=== PATIENT | male | born 2005 | race Caucasian/White ===

== ENCOUNTER 2025-01-28 12:32 | Inpatient (IN) | payer OTHER, SELFPAY ==
--- NOTE | 2025-01-28 12:51 | ED.GENADULT ---
HPI - General Adult General Chief complaint: Psychiatric Symptoms Stated complaint: SEC 12 SI/HI STATEMENTS 2 SCHOOL Time Seen by Provider: 01/28/25 12:37 Source: patient and EMS Mode of arrival: EMS Limitations: no limitations History of Present Illness ED Provider: Tasha Lala PA-C HPI narrative: Patient is a 19 year old assigned male at with a history of autism, ADHD, and anxiety presenting to the emergency department today with suicidal and homicidal ideation. Patient states that he attempted to overdose last night by taking 1 extra dose of his medication and he continues to feel suicidal and homicidal towards his mother. Patient denies any other complaints at this time. Related Data Home Medications ?Medication ?Instructions ?Recorded ?Confirmed oxcarbazepine 300 mg tablet 300 mg PO QAM 01/28/25 01/28/25 oxcarbazepine 600 mg tablet 600 mg PO QPM 01/28/25 01/28/25 risperidone 0.5 mg tablet 0.5 mg PO DAILY 01/28/25 01/28/25 risperidone 1 mg tablet 1.5 mg PO BEDTIME 01/28/25 01/28/25 trazodone 100 mg tablet 100 mg PO BEDTIME 01/28/25 01/28/25 Allergies Allergy/AdvReac Type Severity Reaction Status Date / Time No Known Allergies Allergy Verified 01/28/25 13:03 Review of Systems Constitutional: Constitutional: Reports as per HPI Eyes: Eyes: Reports as per HPI ENT: Reports as per HPI Cardiovascular: Cardiovascular: Reports as per HPI Respiratory: Respiratory: Reports as per HPI Gastrointestinal: Gastrointestinal: Reports as per HPI Genitourinary: Genitourinary: Reports as per HPI Musculoskeletal: Musculoskeletal: Reports as per HPI Integumentary/Breasts: Skin/Breast: Reports as per HPI Neurologic: Reports as per HPI Psychiatric: Psychiatric: Reports as per HPI Endocrine: Endocrine: Reports as per HPI Hematologic/Lymphatic: Hematologic/Lymphatic: Reports as per HPI Allergic/Immunologic: Allergic/Immunologic: Reports as per HPI PMF Past Medical History Attestation statement: The following information was validated with the patient. Source: old records reviewed and nursing notes reviewed Social History Social History Smoked in Last 30 Days: No Advance Directives: No Advance Directives Information Provided: Yes Do you have a plan to hurt others: No Plan Physical Exam ED Vital Signs: Vital Signs - 24 hr 01/29/25 06:00 Temperature 97.6 F Pulse Rate 83 Respiratory Rate 18 Blood Pressure 115/77 Pulse Oximetry 99 Oxygen Delivery Method Room Air BMI result Body Mass Index 31.0 Const General: cooperative, no acute distress, alert and awake Nutritional Appearance: well nourished Orientation/consciousness: patient oriented x3 HENMT Head: Yes normal to inspection and Yes atraumatic Ears: hearing grossly normal bilaterally and external ears normal General nose exam: Normal external nose present, no nasal discharge noted and no epistaxis Face and sinus: Yes normal facial exam, No abrasion and No laceration Mouth: Normal oral and palatal mucosa present, no drooling and no muffled voice Eyes General: appearance normal, both eyes and all related structures Periorbital: periorbital findings normal Eyelids: Yes eyelids normal Conjunctivae: conjunctivae normal Pupils: Equal, round and reactive pupils present EOM: EOMs intact bilaterally Neck Neck: Yes normal visual inspection and Yes full ROM Resp Effort & Inspection: normal respiratory effort and able to speak in complete sentences Neuro General: patient oriented x3, moves all extremities and CN's II-XI intact bilaterally Cranial nerves: Yes Equal, round and reactive pupils present Cognition (Neuro): normal cognition Extrem General: Yes normal to inspection, Yes full ROM and Yes capillary refill normal Psych Appearance: grossly normal Mental Status: mental status grossly normal Thought content: Suicidality present and Homicidality present Course Course Course Narrative: Time: 06:31 Date: 01/29/25 Provider: Vanessa Moreno DO Patient in physician observation for psychiatric evaluation.? No acute events reported overnight. No current complaints. VS stable.?pending psych placement. Will continue to monitor. Reevaluation(s) Reevaluation #1: Time: 14:16 Date: 01/29/25 Provider: Vanessa Moreno DO Physician observation ended at 14:16 Patient to be admitted as inpatient to psychiatry Reevaluation #2: Time: 15:04 Date: 01/29/25 Provider: Vanessa Moreno DO Physician observation ended at 15:04 Patient to be admitted as inpatient to psychiatry. Medications Administered Generic Name Dose Route Start Last Admin Trade Name Freq PRN Reason Stop Dose Admin Oxcarbazepine 300 mg 01/29/25 07:30 01/29/25 08:26 Oxcarbazepine 300 Mg Tablet PO Not Given DAILY YVONNE Risperidone 0.5 mg 01/29/25 09:00 01/29/25 07:50 Risperidone 0.5 Mg Tablet PO 0.5 mg DAILY YVONNE Administration Discontinued Medications Generic Name Dose Route Start Last Admin Trade Name Scooter PRN Reason Stop Dose Admin Oxcarbazepine 600 mg 01/29/25 07:30 01/29/25 07:55 Oxcarbazepine 300 Mg Tablet PO Not Given BEDTIME YVONNE Medical Decision Making Medical Decision Making [place] Narrative: Patient is a 19 year old assigned male at with a history of autism, ADHD, and anxiety presenting to the emergency department today with suicidal and homicidal ideation. Patient's physical exam was as noted in the physical exam portion of this note. Patient's blood work was unremarkable. I explained my physical exam findings as well as all test results to the patient. I answered all questions asked by the patient. Patient placed in observation at 1405 on 01/28/2025 pending CARE team evaluation. Patient's disposition will be determined after CARE Team evaluation. Differential Diagnosis Differential Diagnoses: The differential diagnosis associated with the presentation includes SI HI Admission/Observation Consideration of admission/observation: Escalation of care including admission/observation considered Patient's disposition will be determined after CARE Team evaluation. Lab Data [place] Lab Attestation statement: I reviewed the patient's lab results. My interpretation of these results are in the MDM Rationale portion of this note. 01/28/25 13:14 01/28/25 13:14 Labs: Lab Results 01/28/25 01/28/25 01/28/25 Range/Units 13:08 13:09 13:14 WBC 10.5 (4.8-10.8) X10*3/uL RBC 6.25 H (4.60-5.80) X10*6/uL Hgb 16.6 (14.0-18.0) g/dl Hct 49.7 (42.0-52.0) % MCV 79.5 L (80.0-98.0) fL MCH 26.6 L (27.0-33.0) pg MCHC 33.4 (31.0-36.0) g/dl RDW 12.6 (11.0-16.0) % Plt Count 234 (160-400) X10*3/uL MPV 10.2 (9.4-12.4) fL Immature Gran % (Auto) 0.5 H (0.0-0.4) % Neut % (Auto) 60.2 (45-73) % Lymph % (Auto) 29.8 (20-40) % Kendall % (Auto) 7.1 (2-11) % Eos % (Auto) 2.2 (0-4) % Baso % (Auto) 0.2 (0-2) % Lymph # (Auto) 3.1 (1.2-4.9) X10*3/uL Kendall # (Auto) 0.8 (0.1-1.2) X10*3/uL Eos # (Auto) 0.2 (0.0-0.4) X10*3/uL Baso # (Auto) 0.0 (0.0-0.2) X10*3/uL Abs Immat Gran (auto) 0.05 H (0.00-0.03) X10*3/uL Absolute Neuts (auto) 6.3 (2.0-8.3) x10*3/uL Absolute Nucleated RBC 0.000 (0.0-0.012) X10*3/uL Nucleated RBC % (auto) 0.0 (0.0-0.2) /100WBC Sodium 140 (135-145) mmol/L Potassium 4.1 (3.3-5.1) mmol/L Chloride 108 (96-108) mmol/L Carbon Dioxide 23 (22-29) mmol/L Anion Gap 13 (12-20) BUN 12 (9-16) mg/dL Creatinine 0.90 (0.5-1.4) mg/dL Estim Creat Clear Calc 149.1 Estimated GFR > 60 Random Glucose 89 (60-115) mg/dL Calcium 9.5 (8.4-10.2) mg/dL Total Bilirubin 0.5 (0.0-1.0) mg/dL AST 26 (5-37) U/L ALT 33 (0-40) U/L Alkaline Phosphatase 122 H (39-117) U/L Total Protein 7.7 (6.5-8.0) g/dL Albumin 4.7 (3.5-5.0) g/dL Urine Color Yellow Urine Appearance Clear Urine pH 5.5 (5.0-9.0) Ur Specific [place] >= 1.030 H (1.005-1.025) Urine Protein Negative (Neg-Trace) mg/dL Urine Glucose (UA) Negative (Negative) mg/dL Urine Ketones Negative (Negative) mg/dL Urine Blood Negative (Negative) Urine Nitrite Negative (Negative) Ur Leukocyte Esterase Negative (Negative) Urine RBC 0-2 (0-2) /HPF Urine WBC 0-5 (0-5) /HPF Ur Squamous Epith Cells 0-2 (0-2) /HPF Urine Bacteria None Seen (None Seen) Hyaline Casts 0-2 (0-2) /LPF Salicylates < 5.0 L (15-30) mg/dL Urine Opiates Screen Not Detected (Not Detect) Ur Buprenorphine Scrn Not Detected (Not Detect) ng/mL Ur Oxycodone Screen Not Detected (Not Detect) ng/mL Urine Methadone Screen Not Detected (Not Detect) ng/mL Urine Fentanyl Screen Not Detected (Not Detect) Acetaminophen < 3 (<30) mcg/mL Ur Barbiturates Screen Not Detected (Not Detect) Ur Phencyclidine Scrn Not Detected (Not Detect) Ur Amphetamines Screen Not Detected (Not Detect) U Benzodiazepines Scrn Not Detected (Not Detect) Urine Cocaine Screen Not Detected (Not Detect) U Marijuana (THC) Screen Not Detected (Not Detect) Ethyl Alcohol < 10 mg/dL Independent Historian Clinical information obtained from an independent historian. History obtained from or confirmed by: EMS (EMS provided additional history and confirmed the history provided by the patient. ) Discharge Plan Discharge Clinical Impression: Suicidal ideation, Homicidal ideation Patient Disposition: Admitted As Inpatient Interventions: [place]-Suicide Risk Severity Scale Last Done: 01/29/25 14:12 Admission Worksheet (ED) Last Done: 01/29/25 14:14 Discharge Date/Time: 01/29/25 15:00
[2025-01-28 12:54] VITALS: BP 128/88; PULSE 85; O2SAT 96; BMI 31.0
[2025-01-28 13:20] LABS: MANUAL DIFF FLAG NO
[2025-01-28 13:23] LABS: Hematocrit 49.7 % (42.0-52.0); Hemoglobin 16.6 g/dl (14.0-18.0); Imm Gran Abs Auto 0.05 X10*3/uL (0.00-0.03); Imm Gran Pct Auto 0.5 % (0.0-0.4); Lymphocytes Absolute Auto 3.1 X10*3/uL (1.2-4.9); Mean Corpuscular HGB Conc 33.4 g/dl (31.0-36.0); Mean Corpuscular Hemoglobin 26.6 pg (27.0-33.0); Mean Corpuscular Volume 79.5 fL (80.0-98.0); NRBC Abs Auto 0.000 X10*3/uL (0.0-0.012); NRBC Pct Auto 0.0 /100WBC (0.0-0.2); Platelet Count 234 X10*3/uL (160-400); Red Blood Count 6.25 X10*6/uL (4.60-5.80); White Blood Count 10.5 X10*3/uL (4.8-10.8)
[2025-01-28 13:27] LABS: Appearance Urine Clear; Glucose Urine UA Negative (Negative); PH 5.5 (5.0-9.0); Specific Gravity - Urine >= 1.030 (1.005-1.025)
[2025-01-28 13:35] LABS: Cannabinoid Screen Urine Not Detected (Not Detect)
[2025-01-28 13:37] VITALS: BP 140/50; PULSE 71; RESP 16; TEMP 36.3; O2SAT 97
[2025-01-28 13:42] LABS: Acetaminophen LAB < 3 mcg/mL (<30); Alanine Aminotransferase 33 U/L (0-40); Albumin Level 4.7 g/dL (3.5-5.0); Alkaline Phosphatase 122 U/L (39-117); Anion Gap 13 (12-20); Aspartate Amino Transferase 26 U/L (5-37); Blood Urea Nitrogen 12 mg/dL (9-16); Calcium 9.5 mg/dL (8.4-10.2); Carbon Dioxide 23 mmol/L (22-29); Chloride 108 mmol/L (96-108); Creatinine Clr Calc Pharmacy 149.1; Estimated Glomerular Filt Rate > 60; Potassium 4.1 mmol/L (3.3-5.1); Salicylate < 5.0 mg/dL (15-30); Sodium 140 mmol/L (135-145); Total Protein 7.7 g/dL (6.5-8.0)
[2025-01-29 06:00] VITALS: BP 115/77; PULSE 83; RESP 18; TEMP 36.4; O2SAT 99
--- NOTE | 2025-01-29 07:35 | PHA.MEDREC ---
Pharmacy Consult ? Medication Reconciliation Pharmacy has reviewed the medication reconciliation completed by nursing.
--- NOTE | 2025-01-29 08:06 | ECG_ITS ---
Test Reason : check qtc Blood Pressure : */* mmHG Vent. Rate : 62 BPM Atrial Rate : 62 BPM P-R Int : 134 ms QRS Dur : 84 ms QT Int : 354 ms P-R-T Axes : 41 87 59 degrees QTcB Int : 359 ms Normal sinus rhythm Early repolarization Otherwise normal ECG Normal ECG No previous ECGs available Referred By: Vanessa Moreno Electronically Signed By: CARSON GREEN
--- NOTE | 2025-01-29 08:40 | PC.NURSE ---
Assumed care, report received. Pt is awake, calm and cooperative. He eats breakfast and takes his AM meds.
[2025-01-29 15:18] VITALS: BMI 37.2
[2025-01-29 15:49] VITALS: BP 119/62; PULSE 89; RESP 18; TEMP 36.3; O2SAT 96
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
[2025-01-29] MEDS: Flu Vacc TS2025-26(6mo up)/PF 0.5 ML SYRINGE IM (17:51)
[2025-01-29 20:05] VITALS: BP 137/64; PULSE 102; RESP 18; TEMP 36.7; O2SAT 96
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
[2025-01-30 07:27] VITALS: BP 104/53; PULSE 75; RESP 20; TEMP 36.8; O2SAT 99
[2025-01-30 07:58] LABS: Alanine Aminotransferase 32 U/L (0-40); Albumin Level 4.7 g/dL (3.5-5.0); Alkaline Phosphatase 133 U/L (39-117); Anion Gap 12 (12-20); Aspartate Amino Transferase 27 U/L (5-37); Blood Urea Nitrogen 15 mg/dL (9-16); Calcium 9.7 mg/dL (8.4-10.2); Carbon Dioxide 26 mmol/L (22-29); Chloride 106 mmol/L (96-108); Cholesterol 145 mg/dL (<200); Creatinine Clr Calc Pharmacy 166.9; Estimated Glomerular Filt Rate > 60; HDL Cholesterol 39 mg/dL (>40); Potassium 4.3 mmol/L (3.3-5.1); Sodium 140 mmol/L (135-145); Total Protein 7.5 g/dL (6.5-8.0); Triglycerides 72 mg/dL (<150)
--- NOTE | 2025-01-30 09:00 | P.PNPSI_ITS ---
Subjective Subjective Date of Service: 01/30/25 Reason For Visit: crisis Subjective Notes: Conditional Voluntary Interim History: Active on unit. attending groups. medication compliant. poor eye contact. stammering speech. Patient discussed argument prior to admission with his mother; pt stated, me and my mom arguing is a alf program. She brings a lot of feelings from my father out. I was just upset in the moment. I wouldn't hurt myself or her. I said it so she knew I was upset. I'm trying to communicate better with my mom . denies SI/HI/VH/AH. Patient reports he has times where he forgets to take his medications; discussed having VNA services to help with medication management, pt agreeable to services; social work aware. continue tx plan. Medication Compliance: Yes Side effects from medications: No Attending Groups: Yes Mental Status Exam Mental Status Exam Narrative: Pt is alert and oriented; behavior is cooperative and calm; dressed in casual attire; mood is described as anxious ; eye contact poor; Speech is normal rate, volume and not pressured, stammering; thought process is organized; Thought content is on tx; denies SI/HI/VH/AH. Diagnostics Vital Signs (24Hr): Vital Signs - 24 hr 01/29/25 15:49 01/29/25 20:05 01/30/25 07:27 Temperature 97.3 F 98.1 F 98.2 F Pulse Rate 89 102 H 75 Respiratory Rate 18 18 20 Blood Pressure 119/62 137/64 104/53 L Pulse Oximetry 96 96 99 Oxygen Delivery Method Room Air Room Air Room Air BMI result Body Mass Index 37.2 Labs 01/28/25 13:14 01/30/25 07:26 Labs: Laboratory Results - last 48 hr 01/28/25 01/28/25 01/28/25 13:08 13:09 13:14 WBC 10.5 RBC 6.25 H Hgb 16.6 Hct 49.7 MCV 79.5 L MCH 26.6 L MCHC 33.4 RDW 12.6 Plt Count 234 MPV 10.2 Immature Gran % (Auto) 0.5 H Neut % (Auto) 60.2 Lymph % (Auto) 29.8 [place] % (Auto) 7.1 Eos % (Auto) 2.2 Baso % (Auto) 0.2 Lymph # (Auto) 3.1 [place] # (Auto) 0.8 Eos # (Auto) 0.2 Baso # (Auto) 0.0 Abs Immat Gran (auto) 0.05 H Absolute Neuts (auto) 6.3 Absolute Nucleated RBC 0.000 Nucleated RBC % (auto) 0.0 Sodium 140 Potassium 4.1 Chloride 108 Carbon Dioxide 23 Anion Gap 13 BUN 12 Creatinine 0.90 Estim Creat Clear Calc 149.1 Estimated GFR > 60 Random Glucose 89 Estimat Average Glucose Hemoglobin A1c % Calcium 9.5 Total Bilirubin 0.5 AST 26 ALT 33 Alkaline Phosphatase 122 H Total Protein 7.7 Albumin 4.7 Triglycerides Cholesterol LDL Cholesterol, Calc HDL Cholesterol Urine Color Yellow Urine Appearance Clear Urine pH 5.5 Ur Specific [place] >= 1.030 H Urine Protein Negative Urine Glucose (UA) Negative Urine Ketones Negative Urine Blood Negative Urine Nitrite Negative Ur Leukocyte Esterase Negative Urine RBC 0-2 Urine WBC 0-5 Ur Squamous Epith Cells 0-2 Urine Bacteria None Seen Hyaline Casts 0-2 Salicylates < 5.0 L Urine Opiates Screen Not Detected Ur Buprenorphine Scrn Not Detected Ur Oxycodone Screen Not Detected Urine Methadone Screen Not Detected Urine Fentanyl Screen Not Detected Acetaminophen < 3 Ur Barbiturates Screen Not Detected Ur Phencyclidine Scrn Not Detected Ur Amphetamines Screen Not Detected U Benzodiazepines Scrn Not Detected Urine Cocaine Screen Not Detected U Marijuana (THC) Screen Not Detected Ethyl Alcohol < 10 01/30/25 07:26 WBC RBC Hgb Hct MCV MCH MCHC RDW Plt Count MPV Immature Gran % (Auto) Neut % (Auto) Lymph % (Auto) [place] % (Auto) Eos % (Auto) Baso % (Auto) Lymph # (Auto) [place] # (Auto) Eos # (Auto) Baso # (Auto) Abs Immat Gran (auto) Absolute Neuts (auto) Absolute Nucleated RBC Nucleated RBC % (auto) Sodium 140 Potassium 4.3 Chloride 106 Carbon Dioxide 26 Anion Gap 12 BUN 15 Creatinine 0.88 Estim Creat Clear Calc 166.9 Estimated GFR > 60 Random Glucose 93 Estimat Average Glucose 100 Hemoglobin A1c % 5.1 Calcium 9.7 Total Bilirubin 0.7 AST 27 ALT 32 Alkaline Phosphatase 133 H Total Protein 7.5 Albumin 4.7 Triglycerides 72 Cholesterol 145 LDL Cholesterol, Calc 92 HDL Cholesterol 39 L Urine Color Urine Appearance Urine pH Ur Specific [place] Urine Protein Urine Glucose (UA) Urine Ketones Urine Blood Urine Nitrite Ur Leukocyte Esterase Urine RBC Urine WBC Ur Squamous Epith Cells Urine Bacteria Hyaline Casts Salicylates Urine Opiates Screen Ur Buprenorphine Scrn Ur Oxycodone Screen Urine Methadone Screen Urine Fentanyl Screen Acetaminophen Ur Barbiturates Screen Ur Phencyclidine Scrn Ur Amphetamines Screen U Benzodiazepines Scrn Urine Cocaine Screen U Marijuana (THC) Screen Ethyl Alcohol Medications Medications Current Medications Acetaminophen (Acetaminophen 325 Mg Tablet) 650 mg PO Q6H PRN PRN Reason: Headache/Pain, Scale 1-10 Al Hydroxide/Mg Hydroxide (Magnesium Hydrox/Alum Hydrox 30 Ml Oral.Susp) 30 ml PO Q6H PRN PRN Reason: Heartburn/Nausea Hydroxyzine HCl (Hydroxyzine Hcl 25 Mg Tablet) 25 mg PO Q6H PRN PRN Reason: mild anxiety Magnesium Hydroxide (Milk Of Magnesia 30 Ml Oral.Susp) 30 ml PO DAILY PRN PRN Reason: Constipation Oxcarbazepine (Oxcarbazepine 300 Mg Tablet) 300 mg PO DAILY [facility] Last Admin: 01/30/25 08:47 Dose: 300 mg Oxcarbazepine (Oxcarbazepine 300 Mg Tablet) 600 mg PO BEDTIME [facility] Last Admin: 01/29/25 21:39 Dose: 600 mg Risperidone (Risperidone 0.5 Mg Tablet) 1.5 mg PO BEDTIME [facility] Last Admin: 01/29/25 21:39 Dose: 1.5 mg Risperidone (Risperidone 0.5 Mg Tablet) 0.5 mg PO DAILY [facility] Last Admin: 01/30/25 08:47 Dose: 0.5 mg Trazodone HCl (Trazodone Hcl 100 Mg Tablet) 100 mg PO BEDTIME [facility] Last Admin: 01/29/25 21:39 Dose: 100 mg Allergies Allergies Allergy/AdvReac Type Severity Reaction Status Date / Time No Known Allergies Allergy Verified 01/28/25 13:03 Assessment & Plan Assessment & Plan (1) Complex posttraumatic stress disorder: Status: Acute Code(s): F43.10 - Post-traumatic stress disorder, unspecified (2) Suicidal ideation: Status: Acute Code(s): R45.851 - Suicidal ideations (3) Homicidal ideation: Status: Acute Code(s): R45.850 - Homicidal ideations (4) Autism: Status: Acute Code(s): F84.0 - Autistic disorder Plan Patient is a 19 year old assigned male at with a history of autism, ADHD, and complext PTSD,and anxiety presenting to the emergency department with suicidal and homicidal ideation. Patient states that he attempted to overdose last night by taking 1 extra dose of his medication and he continues to feel suicidal and homicidal towards his mother. Formulation/clinical reasoning: Increased in safety concerns: SI and HI toward mother. Took extra medications during emotional stress which triggered trauma hx. hx of Autism, complex PTSD, and ADHD, hx of suicide attempts. Given above information, patient would benefit in restrictive environment, medication management and refer patient back to OP psychiatric services for aftercare. Hospital course: 01/29/25: Continue with home meds. Titrate as needs to target mood/anxiety/impulsive and PTSD. Plan: Patient on 15 minute checks for safety. Admitted to M3. CV. Work with treatment team to do collateral 01/30: Active on unit. attending groups. medication compliant. poor eye contact. stammering speech. Patient discussed argument prior to admission with his mother; pt stated, me and my mom arguing is a middle or intermediate school principal program. She brings a lot of feelings from my father out. I was just upset in the moment. I wouldn't hurt myself or her. I said it so she knew I was upset. I'm trying to communicate better with my mom . denies SI/HI/VH/AH. Patient reports he has times where he forgets to take his medications; discussed having VNA services to help with medication management, pt agreeable to services; social work aware. continue tx plan. Patient educated on: diagnosis and medication risk/benefits Reason for continued inpatient stay Substantial Risk for: med/psych decompensation Time Spent With Patient Time: Total time managing care of this patient today _20___ minutes.
--- NOTE | 2025-01-30 09:23 | P.CONHOSP_ITS ---
History of Present Illness Data of Consult Service Date: 01/30/25 Primary Care Provider: Unknown Physician HPI Reason for consult: Medical consult 19-year-old male with a past medical history of autism, ADHD, anxiety presented to the emergency room with suicidal and homicidal ideation. Patient was evaluated by crisis we will reports that he wanted to hurt his mother as well as suicide attempt. In the ED he had no leukocytosis, no anemia, no electrolyte imbalances and no evidence of liver or renal dysfunction. Urine without evidence of infection. U tox negative, EtOH negative. On exam he has no medical concerns, reports that he wants to eat more healthy. Review of Systems 2 Review of Systems: Denies any shortness of breath, chest pain, headaches, dysuria, abdominal pain or discomfort, nausea, vomiting or diarrhea. Denies fever or chills. PMFSH Social History Household Members: Family Housing: House Do you presently have visiting nurse or other home services: No Patient Tobacco Use Status: Never used Tobacco Smoked in Last 30 Days: No Currently Displaying Signs/Symptoms of Drug Intoxication Withdrawal: No Have you been hit, kicked, punched, or otherwise hurt by someone within the past year? If so, by whom?: No Do you feel safe in your current relationship?: No Current Relationship Is there a partner from a previous relationship who is making you feel unsafe now?: No Are you made to feel afraid or neglected: No Advance Directives: No Advance Directives Information Provided: Yes Do you have thoughts of harming others: None Do you have a plan to hurt others: No Plan Recently lost weight without trying: No How much weight loss: Not applicable Eating poorly because of decreased appetite: No Nutrition screen score: 0 Nutrition Risks: No Nutritional Risk Poor oral hygiene: No service: No Sexual orientation: Don't Know Meds Allergies Allergy/AdvReac Type Severity Reaction Status Date / Time No Known Allergies Allergy Verified 01/28/25 13:03 Active Medications: Current Medications Acetaminophen (Acetaminophen 325 Mg Tablet) 650 mg PO Q6H PRN PRN Reason: Headache/Pain, Scale 1-10 Al Hydroxide/Mg Hydroxide (Magnesium Hydrox/Alum Hydrox 30 Ml Oral.Susp) 30 ml PO Q6H PRN PRN Reason: Heartburn/Nausea Hydroxyzine HCl (Hydroxyzine Hcl 25 Mg Tablet) 25 mg PO Q6H PRN PRN Reason: mild anxiety Magnesium Hydroxide (Milk Of Magnesia 30 Ml Oral.Susp) 30 ml PO DAILY PRN PRN Reason: Constipation Oxcarbazepine (Oxcarbazepine 300 Mg Tablet) 300 mg PO DAILY [facility] Last Admin: 01/30/25 08:47 Dose: 300 mg Oxcarbazepine (Oxcarbazepine 300 Mg Tablet) 600 mg PO BEDTIME [facility] Last Admin: 01/29/25 21:39 Dose: 600 mg Risperidone (Risperidone 0.5 Mg Tablet) 1.5 mg PO BEDTIME [facility] Last Admin: 01/29/25 21:39 Dose: 1.5 mg Risperidone (Risperidone 0.5 Mg Tablet) 0.5 mg PO DAILY [facility] Last Admin: 01/30/25 08:47 Dose: 0.5 mg Trazodone HCl (Trazodone Hcl 100 Mg Tablet) 100 mg PO BEDTIME [facility] Last Admin: 01/29/25 21:39 Dose: 100 mg Home Medications ?Medication ?Instructions ?Recorded ?Confirmed ?Last Taken ?Type oxcarbazepine 300 mg tablet 300 mg PO QAM 01/28/2501/04/25 History oxcarbazepine 600 mg tablet 600 mg PO QPM 01/28/2501/04/25 History risperidone 0.5 mg tablet 0.5 mg PO DAILY 01/28/2501/04/25 History risperidone 1 mg tablet 1.5 mg PO BEDTIME 01/28/25 1 03/30/24 01/04/25 History trazodone 100 mg tablet 100 mg PO BEDTIME 01/28/25 1 03/30/24 01/04/25 History Physical Exam 2 Vital Signs and Narrative: Vital Signs: Last Vital Signs Temp 98.2 F 01/30/25 07:27 Pulse 75 01/30/25 07:27 Resp 20 01/30/25 07:27 BP 104/53 L 01/30/25 07:27 Pulse Ox 99 01/30/25 07:27 O2 Del Method Room Air 01/30/25 07:27 BMI result Body Mass Index 37.2 Alert and oriented X3, calm and cooperative. Answers questions. Does not maintain eye contact, easily distracted Neuro: CN II-X11 intact, no deficits, ambulates with steady gait EYES: PERRLA, EOM intact ENT: Hearing intact, MMM Cardiac: S1 S2 RRR, No ectopy Pulmonary: lungs clear to auscultation, No increased WOB. Abdominal: BS active in all 4 quadrants, no guarding or tenderness MSK: Strength 5/5 upper and lower extremities : Deferred Extremities: No edema in lower extremities Psych: Mood stable, Quiet and cooperative. Skin: Warm and dry, Intact Results Labs 01/28/25 13:14 01/30/25 07:26 Labs: Laboratory Results - last 24 hr 01/30/25 07:26 Anion Gap 12 Estim Creat Clear Calc 166.9 Estimated GFR > 60 Random Glucose 93 Estimat Average Glucose 100 Hemoglobin A1c % 5.1 Calcium 9.7 Total Bilirubin 0.7 AST 27 ALT 32 Alkaline Phosphatase 133 H Total Protein 7.5 Albumin 4.7 Triglycerides 72 Cholesterol 145 LDL Cholesterol, Calc 92 HDL Cholesterol 39 L Assessment and Plan (1) Autism: Status: Acute Plan Patient is a 19-year-old male with past medical history listed below who presented to the emergency room with SI and HI Complex posttraumatic stress disorder/autism/HI/SI Treatment per psychiatric team Thank you for allowing me to participate in the care of this patient. Will follow with you, please notify medical provider with any changes in condition or concerns.
[2025-01-30 20:00] VITALS: BP 134/76; PULSE 90; RESP 18; TEMP 36.2; O2SAT 97
[2025-01-31 07:30] VITALS: BP 108/66; PULSE 67; RESP 16; TEMP 36.3; O2SAT 99
[2025-01-31 09:52] VITALS: BMI 37.6
--- NOTE | 2025-01-31 12:41 | HO.PSYCHPN ---
Subjective Subjective Date of Service: 01/31/25 Reason For Visit: crisis Subjective Notes: Conditional Voluntary Interim History: Active on unit. attending groups. medication compliant. Patient reports feeling good today; pt stated, I'm not feeling upset with my mom anymore. I just need her to understand my boundaries . denies SI/HI/VH/AH. He reports sleeping well. Discussed discharging home early next week if continues to improve. continue tx plan. Medication Compliance: Yes Side effects from medications: No Attending Groups: Yes Mental Status Exam Mental Status Exam Narrative: Pt is alert and oriented; behavior is cooperative and calm; dressed in casual attire; mood is described as good ; eye contact poor; Speech is normal rate, volume and not pressured, stammering; thought process is organized; Thought content is on tx/discharge; denies SI/HI/VH/AH. Diagnostics Vital Signs (24Hr): Vital Signs - 24 hr 01/30/25 20:00 01/31/25 07:30 Temperature 97.2 F 97.3 F Pulse Rate 90 67 Respiratory Rate 18 16 Blood Pressure 134/76 108/66 Pulse Oximetry 97 99 Oxygen Delivery Method Room Air Room Air BMI result Body Mass Index 37.6 Labs 01/28/25 13:14 01/30/25 07:26 Labs: Laboratory Results - last 48 hr 01/30/25 07:26 Sodium 140 Potassium 4.3 Chloride 106 Carbon Dioxide 26 Anion Gap 12 BUN 15 Creatinine 0.88 Estim Creat Clear Calc 166.9 Estimated GFR > 60 Random Glucose 93 Estimat Average Glucose 100 Hemoglobin A1c % 5.1 Calcium 9.7 Total Bilirubin 0.7 AST 27 ALT 32 Alkaline Phosphatase 133 H Total Protein 7.5 Albumin 4.7 Triglycerides 72 Cholesterol 145 LDL Cholesterol, Calc 92 HDL Cholesterol 39 L Medications Medications Current Medications Acetaminophen (Acetaminophen 325 Mg Tablet) 650 mg PO Q6H PRN PRN Reason: Headache/Pain, Scale 1-10 Al Hydroxide/Mg Hydroxide (Magnesium Hydrox/Alum Hydrox 30 Ml Oral.Susp) 30 ml PO Q6H PRN PRN Reason: Heartburn/Nausea Hydroxyzine HCl (Hydroxyzine Hcl 25 Mg Tablet) 25 mg PO Q6H PRN PRN Reason: mild anxiety Magnesium Hydroxide (Milk Of Magnesia 30 Ml Oral.Susp) 30 ml PO DAILY PRN PRN Reason: Constipation Oxcarbazepine (Oxcarbazepine 300 Mg Tablet) 300 mg PO DAILY [facility] Last Admin: 01/31/25 09:10 Dose: 300 mg Oxcarbazepine (Oxcarbazepine 300 Mg Tablet) 600 mg PO BEDTIME [facility] Last Admin: 01/30/25 20:19 Dose: 600 mg Risperidone (Risperidone 0.5 Mg Tablet) 1.5 mg PO BEDTIME [facility] Last Admin: 01/30/25 20:18 Dose: 1.5 mg Risperidone (Risperidone 0.5 Mg Tablet) 0.5 mg PO DAILY [facility] Last Admin: 01/31/25 09:10 Dose: 0.5 mg Trazodone HCl (Trazodone Hcl 100 Mg Tablet) 100 mg PO BEDTIME [facility] Last Admin: 01/30/25 20:19 Dose: 100 mg Allergies Allergies Allergy/AdvReac Type Severity Reaction Status Date / Time No Known Allergies Allergy Verified 01/28/25 13:03 Assessment & Plan Assessment & Plan (1) Complex posttraumatic stress disorder: Status: Acute Code(s): F43.10 - Post-traumatic stress disorder, unspecified (2) Autism: Status: Acute Code(s): F84.0 - Autistic disorder Plan Patient is a 19 year old assigned male at with a history of autism, ADHD, and complext PTSD,and anxiety presenting to the emergency department with suicidal and homicidal ideation. Patient states that he attempted to overdose last night by taking 1 extra dose of his medication and he continues to feel suicidal and homicidal towards his mother. Formulation/clinical reasoning: Increased in safety concerns: SI and HI toward mother. Took extra medications during emotional stress which triggered trauma hx. hx of Autism, complex PTSD, and ADHD, hx of suicide attempts. Given above information, patient would benefit in restrictive environment, medication management and refer patient back to OP psychiatric services for aftercare. Hospital course: 01/29/25: Continue with home meds. Titrate as needs to target mood/anxiety/impulsive and PTSD. Plan: Patient on 15 minute checks for safety. Admitted to M3. CV. Work with treatment team to do collateral 01/30: Active on unit. attending groups. medication compliant. poor eye contact. stammering speech. Patient discussed argument prior to admission with his mother; pt stated, me and my mom arguing is a penitentiary program. She brings a lot of feelings from my father out. I was just upset in the moment. I wouldn't hurt myself or her. I said it so she knew I was upset. I'm trying to communicate better with my mom . denies SI/HI/VH/AH. Patient reports he has times where he forgets to take his medications; discussed having VNA services to help with medication management, pt agreeable to services; social work aware. continue tx plan. 01/31: Active on unit. attending groups. medication compliant. Patient reports feeling good today; pt stated, I'm not feeling upset with my mom anymore. I just need her to understand my boundaries . denies SI/HI/VH/AH. He reports sleeping well. Discussed discharging home early next week if continues to improve. continue tx plan. Patient educated on: diagnosis, medication risk/benefits and therapeutic strategies Reason for continued inpatient stay Substantial Risk for: med/psych decompensation Time Spent With Patient Time: Total time managing care of this patient today _20___ minutes.
[2025-01-31 20:00] VITALS: BP 122/63; PULSE 84; RESP 16; TEMP 36.8; O2SAT 98
[2025-02-01 07:36] VITALS: BP 110/76; PULSE 68; RESP 20; TEMP 36.2; O2SAT 100
--- NOTE | 2025-02-01 11:20 | P.PNPSI_ITS ---
Subjective Subjective Date of Service: 02/01/25 Reason For Visit: crisis Subjective Notes: Conditional Voluntary Interim History: Patient continues to report feeling good ; pt stated, I feel good and calm with the meds. I talked with my mom and it was good and bad. There wasn't any yelling. I was trying to explain my take on the situation . denies SI/HI/VH/AH. Continue tx plan. Medication Compliance: Yes Side effects from medications: No Attending Groups: Yes Mental Status Exam Mental Status Exam Narrative: Pt is alert and oriented; behavior is cooperative and calm; dressed in casual attire; mood is described as good ; eye contact poor; Speech is normal rate, volume and not pressured, stammering; thought process is organized; Thought content is on tx/discharge; denies SI/HI/VH/AH. Diagnostics Vital Signs (24Hr): Vital Signs - 24 hr 01/31/25 20:00 02/01/25 07:36 Temperature 98.2 F 97.2 F Pulse Rate 84 68 Respiratory Rate 16 20 Blood Pressure 122/63 110/76 Pulse Oximetry 98 100 Oxygen Delivery Method Room Air Room Air BMI result Body Mass Index 37.6 Labs 01/28/25 13:14 01/30/25 07:26 Medications Medications Current Medications Acetaminophen (Acetaminophen 325 Mg Tablet) 650 mg PO Q6H PRN PRN Reason: Headache/Pain, Scale 1-10 Al Hydroxide/Mg Hydroxide (Magnesium Hydrox/Alum Hydrox 30 Ml Oral.Susp) 30 ml PO Q6H PRN PRN Reason: Heartburn/Nausea Hydroxyzine HCl (Hydroxyzine Hcl 25 Mg Tablet) 25 mg PO Q6H PRN PRN Reason: mild anxiety Magnesium Hydroxide (Milk Of Magnesia 30 Ml Oral.Susp) 30 ml PO DAILY PRN PRN Reason: Constipation Oxcarbazepine (Oxcarbazepine 300 Mg Tablet) 300 mg PO DAILY [facility] Last Admin: 02/01/25 08:36 Dose: 300 mg Oxcarbazepine (Oxcarbazepine 300 Mg Tablet) 600 mg PO BEDTIME [facility] Last Admin: 01/31/25 20:56 Dose: 600 mg Risperidone (Risperidone 0.5 Mg Tablet) 1.5 mg PO BEDTIME [facility] Last Admin: 01/31/25 20:56 Dose: 1.5 mg Risperidone (Risperidone 0.5 Mg Tablet) 0.5 mg PO DAILY [facility] Last Admin: 02/01/25 08:36 Dose: 0.5 mg Trazodone HCl (Trazodone Hcl 100 Mg Tablet) 100 mg PO BEDTIME [facility] Last Admin: 01/31/25 20:56 Dose: 100 mg Allergies Allergies Allergy/AdvReac Type Severity Reaction Status Date / Time No Known Allergies Allergy Verified 01/28/25 13:03 Assessment & Plan Assessment & Plan (1) Complex posttraumatic stress disorder: Status: Acute Code(s): F43.10 - Post-traumatic stress disorder, unspecified (2) Autism: Status: Acute Code(s): F84.0 - Autistic disorder Plan Patient is a 19 year old assigned male at with a history of autism, ADHD, and complext PTSD,and anxiety presenting to the emergency department with suicidal and homicidal ideation. Patient states that he attempted to overdose last night by taking 1 extra dose of his medication and he continues to feel suicidal and homicidal towards his mother. Formulation/clinical reasoning: Increased in safety concerns: SI and HI toward mother. Took extra medications during emotional stress which triggered trauma hx. hx of Autism, complex PTSD, and ADHD, hx of suicide attempts. Given above information, patient would benefit in restrictive environment, medication management and refer patient back to OP psychiatric services for aftercare. Hospital course: 01/29/25: Continue with home meds. Titrate as needs to target mood/anxiety/impulsive and PTSD. Plan: Patient on 15 minute checks for safety. Admitted to M3. CV. Work with treatment team to do collateral 01/30: Active on unit. attending groups. medication compliant. poor eye contact. stammering speech. Patient discussed argument prior to admission with his mother; pt stated, me and my mom arguing is a snf program. She brings a lot of feelings from my father out. I was just upset in the moment. I wouldn't hurt myself or her. I said it so she knew I was upset. I'm trying to communicate better with my mom . denies SI/HI/VH/AH. Patient reports he has times where he forgets to take his medications; discussed having VNA services to help with medication management, pt agreeable to services; social work aware. continue tx plan. 01/31: Active on unit. attending groups. medication compliant. Patient reports feeling good today; pt stated, I'm not feeling upset with my mom anymore. I just need her to understand my boundaries . denies SI/HI/VH/AH. He reports sleeping well. Discussed discharging home early next week if continues to improve. continue tx plan. 02/01: Patient continues to report feeling good ; pt stated, I feel good and calm with the meds. I talked with my mom and it was good and bad. There wasn't any yelling. I was trying to explain my take on the situation . denies SI/HI/VH/AH. Continue tx plan. Patient educated on: diagnosis and medication risk/benefits Reason for continued inpatient stay Substantial Risk for: med/psych decompensation Time Spent With Patient Time: Total time managing care of this patient today _20___ minutes.
[2025-02-01 20:00] VITALS: BP 135/70; PULSE 97; RESP 17; TEMP 36.7; O2SAT 97
[2025-02-02 07:41] VITALS: BP 105/58; PULSE 72; RESP 18; TEMP 36.2; O2SAT 99
--- NOTE | 2025-02-02 08:57 | P.PNPSI_ITS ---
Subjective Subjective Date of Service: 02/02/25 Reason For Visit: crisis Subjective Notes: Conditional Voluntary Interim History: Patient was seen and discussed in rounds today. Records and plans were reviewed. He has been stable and is doing ?well?. Eating and sleeping adequately. No complaints or side effects. No SI. No AVH. No changes were made today Review of Systems Review of Systems Yes all other systems are reviewed and are negative Mental Status Exam Mental Status Exam Narrative: In today's visit he is alert, oriented and pleasant. Normal speech. Little eye contact. Affect is appropriate and varied. No acute signs of psychosis. No AVH. No delusions. Cognitively with no gross abnormalities. Moves all limbs. No gait abnormalities. Judgment is fair Diagnostics Vital Signs (24Hr): Vital Signs - 24 hr 02/01/25 20:00 02/02/25 07:41 Temperature 98.0 F 97.2 F Pulse Rate 97 72 Respiratory Rate 17 18 Blood Pressure 135/70 105/58 L Pulse Oximetry 97 99 Oxygen Delivery Method Room Air Room Air BMI result Body Mass Index 37.6 Labs 01/28/25 13:14 01/30/25 07:26 Medications Medications Current Medications Acetaminophen (Acetaminophen 325 Mg Tablet) 650 mg PO Q6H PRN PRN Reason: Headache/Pain, Scale 1-10 Al Hydroxide/Mg Hydroxide (Magnesium Hydrox/Alum Hydrox 30 Ml Oral.Susp) 30 ml PO Q6H PRN PRN Reason: Heartburn/Nausea Hydroxyzine HCl (Hydroxyzine Hcl 25 Mg Tablet) 25 mg PO Q6H PRN PRN Reason: mild anxiety Last Admin: 02/01/25 18:57 Dose: 25 mg Magnesium Hydroxide (Milk Of Magnesia 30 Ml Oral.Susp) 30 ml PO DAILY PRN PRN Reason: Constipation Oxcarbazepine (Oxcarbazepine 300 Mg Tablet) 300 mg PO DAILY [facility] Last Admin: 02/02/25 08:48 Dose: 300 mg Oxcarbazepine (Oxcarbazepine 300 Mg Tablet) 600 mg PO BEDTIME [facility] Last Admin: 02/01/25 20:24 Dose: 600 mg Risperidone (Risperidone 0.5 Mg Tablet) 1.5 mg PO BEDTIME [facility] Last Admin: 02/01/25 20:24 Dose: 1.5 mg Risperidone (Risperidone 0.5 Mg Tablet) 0.5 mg PO DAILY [facility] Last Admin: 02/02/25 08:48 Dose: 0.5 mg Trazodone HCl (Trazodone Hcl 100 Mg Tablet) 100 mg PO BEDTIME [facility] Last Admin: 02/01/25 20:24 Dose: 100 mg Allergies Allergies Allergy/AdvReac Type Severity Reaction Status Date / Time No Known Allergies Allergy Verified 01/28/25 13:03 Assessment & Plan Assessment & Plan (1) Complex posttraumatic stress disorder: Status: Acute Code(s): F43.10 - Post-traumatic stress disorder, unspecified (2) Autism: Status: Acute Code(s): F84.0 - Autistic disorder Plan Patient is a 19 year old assigned male at with a history of autism, ADHD, and complext PTSD,and anxiety presenting to the emergency department with suicidal and homicidal ideation. Patient states that he attempted to overdose last night by taking 1 extra dose of his medication and he continues to feel suicidal and homicidal towards his mother. Formulation/clinical reasoning: Increased in safety concerns: SI and HI toward mother. Took extra medications during emotional stress which triggered trauma hx. hx of Autism, complex PTSD, and ADHD, hx of suicide attempts. Given above information, patient would benefit in restrictive environment, medication management and refer patient back to OP psychiatric services for aftercare. Hospital course: 01/29/25: Continue with home meds. Titrate as needs to target mood/anxiety/impulsive and PTSD. Plan: Patient on 15 minute checks for safety. Admitted to [facility]. CV. Work with treatment team to do collateral 01/30: Active on unit. attending groups. medication compliant. poor eye contact. stammering speech. Patient discussed argument prior to admission with his mother; pt stated, me and my mom arguing is a senior living program. She brings a lot of feelings from my father out. I was just upset in the moment. I wouldn't hurt myself or her. I said it so she knew I was upset. I'm trying to communicate better with my mom . denies SI/HI/VH/AH. Patient reports he has times where he forgets to take his medications; discussed having VNA services to help with medication management, pt agreeable to services; social work aware. continue tx plan. 01/31: Active on unit. attending groups. medication compliant. Patient reports feeling good today; pt stated, I'm not feeling upset with my mom anymore. I just need her to understand my boundaries . denies SI/HI/VH/AH. He reports sleeping well. Discussed discharging home early next week if continues to improve. continue tx plan. 02/01: Patient continues to report feeling good ; pt stated, I feel good and calm with the meds. I talked with my mom and it was good and bad. There wasn't any yelling. I was trying to explain my take on the situation . denies SI/HI/VH/AH. Continue tx plan. 02/02Continue current regimen and plans Reason for continued inpatient stay Substantial Risk for: med/psych decompensation Time Spent With Patient Time: Total time managing care of this patient today ____ minutes.
[2025-02-02 20:00] VITALS: BP 114/71; PULSE 88; RESP 16; TEMP 36.3; O2SAT 97
[2025-02-03 07:47] VITALS: BP 112/53; PULSE 73; RESP 16; TEMP 36.7; O2SAT 99
--- NOTE | 2025-02-03 09:11 | P.PNPSI_ITS ---
Subjective Subjective Date of Service: 02/03/25 Reason For Visit: crisis Subjective Notes: Conditional Voluntary Interim History: Patient was seen and discussed in rounds today. Records and plans were reviewed. He talked at length about some difficulties with his mother and also his therapist being on vacation. He is planning to be discharged on Tuesday of this week. Medication compliant. No complaints or side effects. I. No behavioral issues. No SI. No changes were made Review of Systems Review of Systems Yes all other systems are reviewed and are negative Mental Status Exam Mental Status Exam Narrative: In today's visit he is alert, oriented and pleasant. Normal speech. Little eye contact. Affect is appropriate and varied. No acute signs of psychosis. No AVH. No delusions. Cognitively with no gross abnormalities. Moves all limbs. No gait abnormalities. Judgment is fair Diagnostics Vital Signs (24Hr): Vital Signs - 24 hr 02/02/25 20:00 02/03/25 07:47 Temperature 97.3 F 98.1 F Pulse Rate 88 73 Respiratory Rate 16 16 Blood Pressure 114/71 112/53 L Pulse Oximetry 97 99 Oxygen Delivery Method Room Air Room Air BMI result Body Mass Index 37.6 Labs 01/28/25 13:14 01/30/25 07:26 Medications Medications Current Medications Acetaminophen (Acetaminophen 325 Mg Tablet) 650 mg PO Q6H PRN PRN Reason: Headache/Pain, Scale 1-10 Al Hydroxide/Mg Hydroxide (Magnesium Hydrox/Alum Hydrox 30 Ml Oral.Susp) 30 ml PO Q6H PRN PRN Reason: Heartburn/Nausea Hydroxyzine HCl (Hydroxyzine Hcl 25 Mg Tablet) 25 mg PO Q6H PRN PRN Reason: mild anxiety Last Admin: 02/01/25 18:57 Dose: 25 mg Magnesium Hydroxide (Milk Of Magnesia 30 Ml Oral.Susp) 30 ml PO DAILY PRN PRN Reason: Constipation Oxcarbazepine (Oxcarbazepine 300 Mg Tablet) 300 mg PO DAILY [facility] Last Admin: 02/02/25 08:48 Dose: 300 mg Oxcarbazepine (Oxcarbazepine 300 Mg Tablet) 600 mg PO BEDTIME [facility] Last Admin: 02/02/25 20:07 Dose: 600 mg Risperidone (Risperidone 0.5 Mg Tablet) 1.5 mg PO BEDTIME [facility] Last Admin: 02/02/25 20:07 Dose: 1.5 mg Risperidone (Risperidone 0.5 Mg Tablet) 0.5 mg PO DAILY [facility] [place] Last Admin: 02/02/25 08:48 Dose: 0.5 mg Trazodone HCl (Trazodone Hcl 100 Mg Tablet) 100 mg PO BEDTIME [facility] [place] Last Admin: 02/02/25 20:07 Dose: 100 mg Allergies Allergies Allergy/AdvReac Type Severity Reaction Status Date / Time No Known Allergies Allergy Verified 01/28/25 13:03 Assessment & Plan Assessment & Plan (1) Complex posttraumatic stress disorder: Status: Acute Code(s): F43.10 - Post-traumatic stress disorder, unspecified (2) Autism: Status: Acute Code(s): F84.0 - Autistic disorder Plan Patient is a 19 year old assigned male at with a history of autism, ADHD, and complext PTSD,and anxiety presenting to the emergency department with suicidal and homicidal ideation. Patient states that he attempted to overdose last night by taking 1 extra dose of his medication and he continues to feel suicidal and homicidal towards his mother. Formulation/clinical reasoning: Increased in safety concerns: SI and HI toward mother. Took extra medications during emotional stress which triggered trauma hx. hx of Autism, complex PTSD, and ADHD, hx of suicide attempts. Given above information, patient would benefit in restrictive environment, medication management and refer patient back to OP psychiatric services for aftercare. Hospital course: 01/29/25: Continue with home meds. Titrate as needs to target mood/anxiety/impulsive and PTSD. Plan: Patient on 15 minute checks for safety. Admitted to [facility]. . Work with treatment team to do collateral 01/30: Active on unit. attending groups. medication compliant. poor eye contact. stammering speech. Patient discussed argument prior to admission with his mother; pt stated, me and my mom arguing is a long term care social worker program. She brings a lot of feelings from my father out. I was just upset in the moment. I wouldn't hurt myself or her. I said it so she knew I was upset. I'm trying to communicate better with my mom . denies SI/HI/VH/AH. Patient reports he has times where he forgets to take his medications; discussed having VNA services to help with medication management, pt agreeable to services; social work aware. continue tx plan. 01/31: Active on unit. attending groups. medication compliant. Patient reports feeling good today; pt stated, I'm not feeling upset with my mom anymore. I just need her to understand my boundaries . denies SI/HI/VH/AH. He reports sleeping well. Discussed discharging home early next week if continues to improve. continue tx plan. 02/01: Patient continues to report feeling good ; pt stated, I feel good and calm with the meds. I talked with my mom and it was good and bad. There wasn't any yelling. I was trying to explain my take on the situation . denies SI/HI/VH/AH. Continue tx plan. 02/02Continue current regimen and plans 02/03:Continue current regimen and plans Reason for continued inpatient stay Substantial Risk for: med/psych decompensation Time Spent With Patient Time: Total time managing care of this patient today ____ minutes.
[2025-02-03 20:00] VITALS: BP 142/66; PULSE 98; RESP 18; TEMP 36.6; O2SAT 98
[2025-02-04 07:44] VITALS: BP 103/59; PULSE 85; RESP 18; TEMP 36.3; O2SAT 100
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
[2025-02-04 20:00] VITALS: BP 119/74; PULSE 106; RESP 16; TEMP 36.4; O2SAT 96
[2025-02-05 08:00] VITALS: BP 116/60; PULSE 80; RESP 18; TEMP 36.3; O2SAT 99
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
== END 2025-02-05 10:50 | disposition home or self-care (01) | DRG 755 ==
LOC: HO.ED 14:34 → HO.PADLT16 01-29 13:55
PROVIDERS: Physician Assistant Medical; Admitting Provider Registered Nurse; Emergency Provider Emergency Medicine; Responsible Provider Registered Nurse; Visit Provider Psychiatry & Neurology Psychiatry
DX: F43.10 Post-traumatic stress disorder, unspecified (principal); R45.850 Homicidal ideations; R45.851 Suicidal ideations; F84.0 Autistic disorder; Z23 Encounter for immunization; Z79.899 Other long term (current) drug therapy
CPT/HCPCS: 36415; 80053; 80061; 80143; 80179; 80307; 81001; 83036; 85025; 90656; 93005; 99285

== ENCOUNTER → 2025-01-29 08:06 | Outpatient (BNV) | payer OTHER, SELFPAY | PROVIDERS: Admitting Provider Registered Nurse; Emergency Provider Emergency Medicine; Visit Provider Internal Medicine | DX: Z13.6 Encounter for screening for cardiovascular disorders (principal) | CPT/HCPCS: 93010 ==

== ENCOUNTER → 2025-01-29 13:33 | Outpatient (BNV) | payer OTHER, SELFPAY | PROVIDERS: Admitting Provider Registered Nurse; Emergency Provider Emergency Medicine; Responsible Provider Registered Nurse; Visit Provider Nurse Practitioner Family | DX: F84.0 Autistic disorder (principal) | CPT/HCPCS: 99221 ==

== ENCOUNTER → 2025-01-29 13:33 | Outpatient (BNV) | payer OTHER, SELFPAY | PROVIDERS: Admitting Provider Registered Nurse; Emergency Provider Emergency Medicine; Visit Provider Nurse Practitioner Psychiatric/Mental Health | DX: F43.11 Post-traumatic stress disorder, acute (principal); R45.851 Suicidal ideations; R45.850 Homicidal ideations; F84.0 Autistic disorder | CPT/HCPCS: 90792; 99232 ==